=== PATIENT | male | born 1950 | race Caucasian/White ===

== ENCOUNTER 2019-10-05 12:11 | Emergency (ER) | payer MEDICARE, OTHER ==
[~2019-10-05] VITALS: Ht 185.4 cm; Wt 103.2 kg
[2019-10-05 12:55] LABS: BASOPHILS # (AUTO) 0.02 x10^3/uL (0-0.1); BASOPHILS % (AUTO) 0 % (0-1); EOSINOPHILS # (AUTO) 0.12 x10^3/uL (0-0.4); EOSINOPHILS % (AUTO) 2 % (1-7); LYMPHOCYTES # (AUTO) 1.51 x10^3/uL (1-3.4); LYMPHOCYTES % (AUTO) 24 % (22-44); MD NO; MEAN CORPUSCULAR HEMOGLOBIN 31.2 pg (27.5-34.5); MEAN CORPUSCULAR HGB CONC 33.6 g/dL (33.2-36.2); MEAN CORPUSCULAR VOLUME 92.9 fL (81-97); MEAN PLATELET VOLUME 7.5 fL (7.4-10.4); MONOCYTES # (AUTO) 0.41 x10^3/uL (0.2-0.8); MONOCYTES % (AUTO) 7 % (2-9); NEUTROPHILS # (AUTO) 4.17 x10^3/uL (1.8-6.8); NEUTROPHILS % (AUTO) 67 % (42-75); PLATELET COUNT 226 x10^3/uL (130-400); RED BLOOD COUNT 4.54 x10^6/uL (4.38-5.82); RED CELL DISTRIBUTION WIDTH 12.8 % (9.4-14.8)
[2019-10-05] MEDS ORDERED: ASPIRIN 325 MG TABLET PO ONE (13:00)
[2019-10-05] MEDS ORDERED: ASPIRIN 81 MG TABLET CHEW ONE (13:01)
--- NOTE | 2019-10-05 13:03 | NUR ---
BREAK NOTE FOR RN: DISCUSSION WITH ERMD REGARDING ASPIRIN ORDER. PER PT, TOOK 2 BAYERS AND CHEWED THEM THIS AM. PER ERMD DISCRETION, HOLD ASPIRIN FOR NOW. PT SITTING UP IN BED, SMILING, PLEASANT WITH STAFF. SIDE RAILS UP, CALL LIGHT IN REACH. FAMILY AT BEDSIDE. AWATING LAB RESULTS.
[2019-10-05 13:07] LABS: ANION GAP 2 mmol/L (5-15); CALCIUM 9.1 mg/dL (8.5-10.1); CHLORIDE 109 mmol/L (98-107)
[2019-10-05 13:11] LABS: TROPONIN I < 0.015 ng/mL (0.000-0.045)
--- NOTE | 2019-10-05 14:00 | NUR ---
PT UPRIGHT ON GURNEY AWAKE & COMFORTABLE, RESPONDS APPROP TO STAFF, NAD, COMFORT MEASURES PROVIDED, AT BS, CALL LIGHT WITHIN REACH.
[2019-10-05 14:58] VITALS: BP 114/68
--- NOTE | 2019-10-05 15:00 | NUR ---
PT REMAINS UPRIGHT ON GURNEY AWAKE & COMFORTABLE, TYPING ON LAPTOP, RESPONDS APPROP TO STAFF, NAD, COMFORT MEASURES PROVIDED, AT BS, CALL LIGHT WITHIN REACH.
[2019-10-05 15:02] LABS: TROPONIN I < 0.015 ng/mL (0.000-0.045)
--- NOTE | 2019-10-05 15:09 | NUR ---
Patient given discharge instructions and they have confirmed that they understand the instructions. Patient ambulatory with steady gait.
== END 2019-10-05 15:10 | disposition home or self-care (01) ==
LOC: ED 13:00
DX: R07.89 Other chest pain (principal); Z87.891 Personal history of nicotine dependence
CPT/HCPCS: 36415; 71045; 80048; 82040; 83880; 84484; 85025; 93005; 99284

== ENCOUNTER → 2019-10-24 | Outpatient (CLI) | payer MEDICARE | END | disposition home or self-care (01) | LOC: CVU 07:01 | PROVIDERS: ATTEND Internal Medicine Cardiovascular Disease | DX: I08.8 Other rheumatic multiple valve diseases (principal) | CPT/HCPCS: 93306 ==

== ENCOUNTER → 2020-08-22 | Outpatient (CLI) | payer MEDICARE, OTHER ==
[~2020-08-22] MED LIST: OMNIPAQUE 350 MG/ML, 100ML BOTTLE ONE
== END | disposition home or self-care (01) ==
LOC: CFH 14:21
PROVIDERS: ATTEND Internal Medicine Cardiovascular Disease
DX: I25.10 Atherosclerotic heart disease of native coronary artery without angina pectoris (principal); I77.810 Thoracic aortic ectasia
CPT/HCPCS: 71275; 82565; Q9967

== ENCOUNTER 2021-05-07 09:40 | Emergency (ER) | payer MEDICARE, OTHER ==
[~2021-05-07] VITALS: Ht 185.4 cm; Wt 101.2 kg
[2021-05-07 09:43] VITALS: BP 114/51
--- NOTE | 2021-05-07 10:01 | NUR ---
THIS IS A 70 YEAR OLD MALE WHO C/O "I FELL A WEEK AGO AND HURT MY WRIST, AND THE PAIN ISN'T GETTING BETTER". NO OBVIOUS DEFORMITY NOTED. A BS. PT STATES PAIN IS 5/10
[2021-05-07] MEDS ORDERED: OXYcodone/APAP 5/325MG TABLET ONE (10:11)
--- NOTE | 2021-05-07 10:18 | NUR ---
MEDICATED PER MAR, ICE PACK GIVEN
[2021-05-07] MEDS ORDERED: OXYcodone/APAP 5/325MG TABLET PO ONE (11:00)
--- NOTE | 2021-05-07 11:39 | NUR ---
TASK RN: TECH AT BEDSIDE FOR SPLINTING.
--- NOTE | 2021-05-07 12:03 | NUR ---
Patient/Caregiver given discharge instructions and they have confirmed that they understand the instructions. Patient ambulatory with steady gait. NAD, all questions answered appropriately, denies additional needs at this time. No personal belongings left in room after discharge.
== END 2021-05-07 12:04 | disposition home or self-care (01) ==
LOC: ED 11:21
DX: S52.572A Other intraarticular fracture of lower end of left radius, initial encounter for closed fracture (principal); W01.0XXA Fall on same level from slipping, tripping and stumbling without subsequent striking against object, initial encounter; Y93.89 Activity, other specified; Y92.828 Other wilderness area as the place of occurrence of the external cause; Y99.8 Other external cause status
CPT/HCPCS: 29125; 99283